=== PATIENT | male | born 1980 | race African-American/Black ===

== ENCOUNTER 2021-06-03 12:10 | Emergency (ER) | payer OTHER ==
[~2021-06-03] VITALS: Ht 172.7 cm; Wt 88.5 kg
[~2021-06-03 12:10] MED LIST: TRIAMCINOLONE A15 G1 TP
[2021-06-03 12:51] LABS: URINE BILIRUBIN NEGATIVE (Negative); URINE BLOOD NEGATIVE (Negative); URINE CLARITY CLEAR; URINE COLOR YELLOW; URINE GLUCOSE-RANDOM NEGATIVE (Negative); URINE KETONES NEGATIVE (Negative); URINE LEUKOCYTES-REFLEX NEGATIVE (Negative); URINE NITRITE-REFLEX NEGATIVE (Negative); URINE PROTEIN TRACE (Negative); URINE SPECIFIC GRAVITY >= 1.030 (1.005-1.030)
--- NOTE | 2021-06-03 15:33 | EKG ---
[place] [address] ELECTROCARDIOGRAM REPORT Name: ERICKA BARBOSA Room: [facility]#: [id number] Admission: 06/03/21 Attend Phys: Discharge: Date of : 80 Date of Service: 06/03/21 1234 Report #: [id number] THIS REPORT FOR: //name// [facility] ED Test Date: 2021-06-03 Test Time: 12:34:18 Pat Name: ERICKA BARBOSA Department: Room: Gender: Online Mark[employer]: : 1980 Requested By: Romeo Myles Order Number: [id number] MD: Bhanu Kaminski Measurements Intervals [place] Rate: 86 P: 44 DC: 168 QRS: 65 QRSD: 93 T: 34 QT: 329 QTc: 394 Interpretive Statements Sinus rhythm No previous ECG available for comparison Electronically Signed On 06-03-2021 15:33:28 CDT by Bhanu Kaminski [email or web address] <ELECTRONICALLY SIGNED> By: Bhanu Kaminski MD, [facility] 06/03/21 1533 1234 1234 Bhanu Kaminski MD, FACC /EPI
[2021-06-03 15:35] LABS: HEMATOCRIT 43.2 % (42.0-52.0); HEMOGLOBIN 14.5 gm/dL (14.0-18.0); MCH 30.3 pg (26.0-34.0); MCHC 33.5 g/dL (28.0-37.0); MCV 90.5 fL (80.0-100.0); MPV 7.3 fl. (7.2-11.1); NUCLEATED RBCS 0 /100WBC; PLATELET COUNT* 204 thou/uL (150-400); RBC 4.78 mil/uL (4.50-6.00); RDW-CV 13.9 % (10.5-14.5); WBC 3.4 thou/uL (4.0-11.0)
[2021-06-03 15:38] LABS: CALCIUM 8.5 mg/dL (8.5-10.1); CREATININE 1.7 mg/dL (0.6-1.3)
[2021-06-03 15:42] LABS: ALBUMIN 3.5 g/dL (3.4-5.0); MAGNESIUM 2.2 mg/dL (1.8-2.4); TOTAL BILIRUBIN 0.3 mg/dL (<0.1-1.0); TOTAL PROTEIN 7.5 g/dL (6.4-8.2)
[2021-06-03 16:28] LABS: ABSOLUTE LYMPHOCYTES 1.1 thou/uL (0.8-5.3); ABSOLUTE MONOCYTES 0.7 thou/uL (0.0-1.2); ABSOLUTE NEUTROPHILS 1.6 thou/uL (1.6-8.1)
[2021-06-03 16:29] LABS: MACROCYTES 1+; PLATELET ESTIMATE ADEQUATE
[2021-06-03] MEDS ORDERED: FLEXERIL PO (16:58)
[2021-06-03 17:07] VITALS: BP 135/81
== END 2021-06-03 17:07 | disposition home or self-care (01) ==
LOC: M.ERS 12:10
PROVIDERS: Emergency Medicine Emergency Medical Services; Nurse Practitioner Family
DX: I10 Essential (primary) hypertension (principal); R07.89 Other chest pain; F17.210 Nicotine dependence, cigarettes, uncomplicated